=== PATIENT | female | born 1980 | race Caucasian/White ===

== ENCOUNTER 2022-05-03 08:08 | Outpatient (CLI) | payer BC, SELFPAY ==
[2022-05-03 08:24] LABS: Ur HCG Qualitative* Negative (Negative)
[2022-05-03 15:00] LABS: Chloride* 102 mmol/L (96-114)
[2022-05-03 15:01] LABS: Potassium* 4.5 mmol/L (3.6-5.1); Sodium* 134 mmol/L (135-149)
[2022-05-03 15:03] LABS: Carbon Dioxide* 22 mmol/L (20-32); Creatinine* 0.6 mg/dL (0.5-1.5); Estimated Glomerular Filt Rate 116 ml/min
[2022-05-03 15:04] LABS: Blood Urea Nitrogen* 12 mg/dL (5-24); Calcium* 9.5 mg/dL (8.4-10.6); Glucose* 100 mg/dL (60-115)
[2022-05-04 10:15] LABS: Basophils Absolute Auto 0.06 K/uL (0.00-0.30); Basophils Percent Auto 0.6 % (0.0-3.0); Eosinophils Absolute Auto 0.17 K/uL (0.00-0.50); Eosinophils Percent Auto 1.7 % (0.0-7.0); Hematocrit 41.3 % (33.0-51.0); Hemoglobin* 13.9 gm/dL (12.0-16.0); Immature Granulocytes Abs Auto 0.06 K/uL (0.00-0.30); Lymphocytes Percent Auto 17.2 % (20-44); Mean Corpuscular HGB Conc 34 gm/dL (32-36); Mean Corpuscular Hemoglobin 30 pg (26-34); Mean Corpuscular Volume 89 fL (80-100); Monocytes Percent Auto 6.6 % (0.0-11.0); Neutrophils Percent Auto 73.3 % (42.0-72.0); Platelet Count* 222 K/uL (140-440); RDW Coefficient of Variation % 11.6 % (11.5-15.5); Red Blood Count 4.62 m/uL (4.00-5.20); White Blood Count* 9.82 K/uL (4.50-11.00)
[2022-05-04 10:17] LABS: Slide Review Reflex No
== END 2022-05-03 08:09 | disposition home or self-care (01) ==
PROVIDERS: PCP Nurse Practitioner Family; Visit Provider Nurse Practitioner Family
DX: R10.31 Right lower quadrant pain (principal); N39.0 Urinary tract infection, site not specified
CPT/HCPCS: 36415; 74176; 80048; 81025; 85025; 87086; 87186; 99283; J1885; J2405; J7030

== ENCOUNTER 2022-05-03 12:52 | Emergency (ER) | payer BC, SELFPAY ==
[2022-05-03 13:04] VITALS: BP 120/83; PULSE 79; RESP 18; TEMP 36.6; O2SAT 97; BMI 22.3
--- NOTE | 2022-05-03 13:15 | ED_ITS ---
HPI - General Adult General Time Seen by Provider: 13:15 Date Seen: 05/03/22 Chief complaint: Abdominal Pain Stated complaint: Abdominal pain, needs CT Time Seen by Provider: 05/03/22 13:13 Source: patient, RN notes reviewed and old records reviewed (Note from clinic today review) Mode of arrival: ambulatory Limitations: no limitations History of Present Illness HPI narrative: Patient is a 41-year-old female sent to us from [facility] where she was evaluated by Tyrel Pruitt for concern of UTI. Patient has had urinary symptoms with frequency brownish discolored urine since yesterday. She has had significant right lower quadrant abdominal pain with this. She has had a prior and tubal ligation, LMP was about 9 days ago. No vaginal symptoms. , in a stable monogamous relationship. No other surgical procedures. I have reviewed Tyrel is note from clinic. She did want patient to have a CT to rule out such pathology is an infected kidney stone. They could not get a prior authorization done tonight she was referred to the ER. Bactrim has been ordered for her for UTI already. No fevers or chills. Has had constant nausea with this but no vomiting. States she has not eaten today as she went to the clinic at 9:00 a.m. and it is now after 1:00 p.m.. Related Data Home Medications Medication Instructions Recorded Confirmed levothyroxine 137 mcg capsule 137 mcg PO QDAY 05/03/22 05/03/22 Previous Rx's Medication Instructions Recorded phenazopyridine 200 mg tablet 200 mg PO TID PRN pain 6 doses #6 05/03/22 (Pyridium) tabs sulfamethoxazole 800 1 tab PO BID 7 days #14 tabs 05/03/22 mg-trimethoprim 160 mg tablet (Bactrim DS) Allergies Allergy/AdvReac Type Severity Reaction Status Date / Time hepatitis B virus vaccine Allergy Verified 05/03/22 07:51 Review of Systems Status of ROS: Reports: 10 or more systems reviewed and unremarkable except as noted in History and below PFSH PFSH Social History Smoking Status: Never smoker Exam Const: Vital Signs, click to edit/add: Vital Signs - 24 hr 05/03/22 13:04 Temperature 97.9 F Pulse Rate [Right Pulse Oximeter] 79 Respiratory Rate 18 Blood Pressure [Ri ght Upper Arm] 120/83 Pulse Oximetry 97 Oxygen Delivery Me thod Room Air Documenting provider has reviewed patient's vital signs: yes Common normals: no apparent distress, average body habitus, oriented x3, no limitations, healthy appearing, alert and well nourished General appearance: cooperative, comfortable and well kempt HENMT: Common normals: normocephalic, head/scalp atraumatic and hearing grossly normal bilaterally Head and scalp: normocephalic and atraumatic Eye: Common normals: PERRL, EOMs intact bilaterally, conjunctivae normal and no scleral icterus Conjunctiva: conjunctiva(e) normal Pupil: PERRL Neck & C-Spine: Common normals: full ROM, no lymphadenopathy, supple, no meningeal signs, no JVD and thyroid normal Thyroid: thyroid normal Resp: Common normals: normal respiratory effort, no retractions, no use of accessory muscles and clear to auscultation bilaterally Auscultation: clear to auscultation bilaterally Cardio: Common normals: no JVD, regular rate, regular rhythm, S1 normal heart sound, S2 normal heart sound, no gallops, no clicks, no murmurs and no rub Rate: regular rate Rhythm: regular rhythm Heart sounds: S1 normal and S2 normal GI: Common normals: Normal to inspection, nondistended, normoactive bowel sounds present, soft to palpation, no hepatosplenomegaly and no masses Pa lpation: soft, tender (Specially right lower quadrant but does generalize some to left lower quad) and no hepatosplenomegaly Neuro: Common normals: oriented x3 Sensorium/orientation: alert Meningeal signs: no meningeal signs Speech: speech normal Gait (neuro): normal gait Psych: Appearance: well kempt Skin: Common normals: no rashes or lesions noted General skin exam: no rashes or lesions noted Course Course Hospital Course: Will proceed with IV placement, give her normal saline bolus as she has not had any fluids today, Zofran 4 mg IV for control of her nausea and 15 mg IV Toradol for pain management. I will get workup of labs. I am going to proceed with ordering a CT abdomen and pelvis with and without IV contrast. There are some potential diagnosis that we certainly do not want to miss. We do not want to mi ss an infected kidney stone. We certainly conceivably could have an appendix with an atypical like causing urinary symptoms as I have seen in the past. For stone pathology I absolutely do not want to miss this and will do a noncontrast. 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 The radiologist had recommended just doing a noncontrast CT. We certainly can start with that and if need be consider back further with contrast. I will amend that order. I have also been notified that her CBC and basic metabolic panel are here in our lab from [place]. I will cancel my labs and we can just look up her results when back. Reevaluation(s) Reevaluation #1: Reviewed with patient that her CT of her abdomen noncontrast is not showing any acute pathology. Her CBC and basic metabolic panel are being run in the lab. We will complete her fluids. I have advised her that she does need to take the antibiotic that was sent in for her, Bactrim. I have also discussed Pyridium with her as an option for symptom management. We will send a course of this in for her as well. Time: 14:41 Vital Signs Vital signs: Initial Vital Signs Temperature 97.9 F 05/03/22 13:04 Temperature Source Temporal Artery Scan 05/03/22 13:04 Pulse Rate 79 05/03/22 13:04 Respiratory Rate 18 05/03/22 13:04 Blood Pressure 120/83 05/03/22 13:04 Blood Pressure Mean 95 05/03/22 13:04 Blood Pressure Position Sitting 05/03/22 13:04 Pulse Oximetry 97 05/03/22 13:04 Oxygen Delivery Method 05/03/22 13:04 Vital Signs Temperature 97.9 F 05/03/22 13:04 Pulse Rate 79 05/03/22 13:04 Respiratory Rate 18 05/03/22 13:04 Blood Pressure 120/83 05/03/22 13:04 Pulse Oximetry 97 05/03/22 13:04 Oxygen Delivery Method 05/03/22 13:04 Temperature 97.9 F 05/03/22 13:04 Pulse Rate 79 05/03/22 13:04 Respiratory Rate 18 05/03/22 13:04 Blood Pressure 120/83 05/03/22 13:04 Pulse Oximetry 97 05/03/22 13:04 Oxygen Delivery Method 05/03/22 13:04 Medical Decision Making Lab Data Lab results reviewed: Yes I reviewed the patient's lab results Lab results narrative: Her basic metabolic panel from earlier today is reviewed and without any significant concerns. CBC is still pending. Will leave that for her primary care provider to follow up, I am not sure why this is not back as of yet. Time of review was 8:[address] scan - abdomen: Attestation: I have reviewed the pertinent imaging results. Radiologist's impression: Patient: LULU MELO Facility:?[facility] Patient ID:?[id number] Site Patient ID:?[id number]. Site :?[id number] Study:?CT Abdomen/Pelvis W/O-05/03/2022 2:01:40 PM Ordering Physician:Sarah Gaytan Final Report: INDICATION: Pain right lower quadrant. Urinary tract infection. COMPARISON: None TECHNIQUE: CT examination of the abdomen and pelvis was performed without intravenous contrast. Thin section axial images were obtained from the lung bases through the pubic symphysis. Oral contrast was not administered. Please note that all CT scans at this facility use dose modulation, iterative reconstruction, and/or weight-based dosing when appropriate to reduce radiation dose to as low as reasonably achievable. FINDINGS: LUNG BASES: The lung bases as visualized appear normal.The heart size is normal at the lung bases. LIVER/BILIARY SYSTEM:The liver is normal in size and configuration given the lack of intravenous contrast. There is no visible focal mass and there is no intra- or extra hepatic biliary ductal dilatation.The gall bladder appears normal. ADRENALS: Normal non-contrast appearance KIDNEYS, URETERS and BLADDER:The kidneys appear normal given lack of intravenous contrast. No visible mass, calculus or hydronephrosis. The ureters and bladder as visualized appear normal. SPLEEN:Normal non-contrast appearance. PANCREAS: Normal non-contrast appearance. RETROPERITONEUM and MESENTERY: There is no mass, adenopathy or aortic aneurysm. GASTROINTESTINAL SYSTEM: There is no evidence of diverticulitis, colitis, mechanical obstruction, or appendicitis. The small bowel as visualized appears normal. PELVIS: No mass, adenopathy or free fluid. OSSEOUS STRUCTURES and ABDOMINAL WALL: There is an age-appropriate appearance of the osseous structures.No significant abdominal wall defect. OTHER: No free fluid or free air. IMPRESSION: Normal contrast-enhanced CT of the abdomen and pelvis Critical Care Time Critical Care Time Critical Care Time: No Discharge Plan Discharge Clinical Impression: Right lower quadrant abdominal pain, Urinary tract infection Patient Disposition: Home, Self-Care Condition: Stable Instructions: Urinary Tract Infection in Women (ED) Additional Instructions: Take antibiotic as prescribed, push fluids. If you are not improving over the next 24-48 hours, develops fever or worsening abdominal pain, have vomiting with any of these symptoms, do need to seek re-evaluation. Activity Level: Activity as Tolerated Prescriptions: New phenazopyridine [Pyridium] 200 mg tablet 200 mg PO TID PRN (Reason: pain) Qty: 6 0RF No Action levothyroxine 137 mcg capsule 137 mcg PO QDAY sulfamethoxazole-trimethoprim [Bactrim DS] 800-160 mg tablet 1 tab PO BID 7 Days Qty: 14 0RF Follow Up/Referrals: Alda Pruitt, KITCHEN WORK SUPERVISOR, RESTORATIVE COORDINATOR [Primary Care Provider] - Stand Alone Forms: [employer] Info Instructions
--- NOTE | 2022-05-03 13:23 | CRLHL7_ITS ---
For Patients: As a result of the Century Cures Act, medical imaging exams and procedure reports are released immediately into your electronic medical record. You may view this report before your referring provider. If you have questions, please contact your health care provider. INDICATION: Pain right lower quadrant. Urinary tract infection. COMPARISON: None TECHNIQUE: CT examination of the abdomen and pelvis was performed without intravenous contrast. Thin section axial images were obtained from the lung bases through the pubic symphysis. Oral contrast was not administered. Please note that all CT scans at this facility use dose modulation, iterative reconstruction, and/or weight-based dosing when appropriate to reduce radiation dose to as low as reasonably achievable. FINDINGS: LUNG BASES: The lung bases as visualized appear normal.The heart size is normal at the lung bases. LIVER/BILIARY SYSTEM:The liver is normal in size and configuration given the lack of intravenous contrast. There is no visible focal mass and there is no intra- or extra hepatic biliary ductal dilatation.The gall bladder appears normal. ADRENALS: Normal non-contrast appearance KIDNEYS, URETERS and BLADDER:The kidneys appear normal given lack of intravenous contrast. No visible mass, calculus or hydronephrosis. The ureters and bladder as visualized appear normal. SPLEEN:Normal non-contrast appearance. PANCREAS: Normal non-contrast appearance. RETROPERITONEUM and MESENTERY: There is no mass, adenopathy or aortic aneurysm. GASTROINTESTINAL SYSTEM: There is no evidence of diverticulitis, colitis, mechanical obstruction, or appendicitis. The small bowel as visualized appears normal. PELVIS: No mass, adenopathy or free fluid. OSSEOUS STRUCTURES and ABDOMINAL WALL: There is an age-appropriate appearance of the osseous structures.No significant abdominal wall defect. OTHER: No free fluid or free air. IMPRESSION: Normal contrast-enhanced CT of the abdomen and pelvis Please note that all CT scans at this facility use dose modulation, iterative reconstruction, and/or weight-based dosing when appropriate to reduce radiation dose to as low as reasonably achievable. Dictated by Nahid Galan MD @ 05/03/2022 2:09:48 PM (Electronically Signed)
[2022-05-03] MEDS: ONDANSETRON 2 MG/ML inj 4 MG IVP (13:45)
[2022-05-03] MEDS: KETOROLAC 15 MG/ML inj IVP (13:45)
[2022-05-03] MEDS: 0.9 % SODIUM CHLORIDE 1000 ml 1,000 ML 500 ML IV (14:00)
== END 2022-05-03 15:30 | disposition home or self-care (01) ==
PROVIDERS: Emergency Provider Family Medicine; PCP Nurse Practitioner Family
DX: Z53.21 Procedure and treatment not carried out due to patient leaving prior to being seen by health care provider (principal)
CPT/HCPCS: 99281; 74176; 80048; 85025; 86140; 99283; J1885; J2405; J7030

== ENCOUNTER 2022-10-04 14:35 | Outpatient (CLI) | payer SELFPAY ==
[2022-10-04 22:08] LABS: TSH With Reflex to FT4* 0.038 uIU/mL (0.270-4.200)
[2022-10-04 22:59] LABS: Free T4 Free Thyroxine* 1.79 ng/dL (0.70-1.85)
== END 2022-10-04 14:36 | disposition home or self-care (01) ==
LOC: KYNREF 14:35
PROVIDERS: PCP Nurse Practitioner Family; Visit Provider Nurse Practitioner Family
DX: E03.9 Hypothyroidism, unspecified (principal)
CPT/HCPCS: 84439; 84443

== ENCOUNTER 2023-01-03 14:39 | Outpatient (CLI) | payer SELFPAY ==
[2023-01-04 18:04] LABS: TSH With Reflex to FT4* 0.369 uIU/mL (0.270-4.200)
== END 2023-01-03 14:40 | disposition home or self-care (01) ==
PROVIDERS: PCP Nurse Practitioner Family; Visit Provider Nurse Practitioner Family
DX: E03.9 Hypothyroidism, unspecified (principal)
CPT/HCPCS: 36415; 84443

== ENCOUNTER 2024-04-09 13:26 | Outpatient (CLI) | payer OTHER, SELFPAY ==
--- OUTSIDE RECORDS SUMMARY | 2024-04-09 13:29 | XMS_ITS | Clinical Summary ---
Author Organization [facility] Address [place], [place] [address] Care Team Providers Care Dean Of Chapel Name Role Phone Pcp, No Primary Care Provider Unavailabl e Pcp, No Unavailable Unavailable Allergies No known active allergies Medications Medication Sig Dispensed Refills Start Date End Date Status LEVOTHYROXINE SODIUM (SYNTHROID ORAL) Take by mouth. 75 mcg mon-fri 50 mcg weekends Active Social History Tobacco Use Types Packs/Day Years Used Date Smoking Tobacco: Never Alcohol Use Standard Drinks/Week Comments Yes 0 (1 standard drink = 0.6 oz pur e alcohol) Sex and Gender Information Value Date Recorded Sex Assigned at Not on file Gender Identity Not on file Sexual Orientation Not on file Obstetrics History Last Filed Vital Signs Vital Sign Reading Time Taken Comments Blood Pressure 104/64 07/17/2014 3:05 PM LAPPING MACHINE SET UP OPERATOR Pulse 65 07/17/2014 3:05 PM LAPPING MACHINE SET UP OPERATOR Temperature 36.4 ??C (97.6 ??F) 07/17/2014 12:[address] Respiratory Rate 18 07/17/2014 12:57 PM LAPPING MACHINE SET UP OPERATOR Oxygen Saturation 100% 07/17/2014 3:05 PM LAPPING MACHINE SET UP OPERATOR Inhaled Oxygen Concentration - - Weight 63.5 kg (140 lb) 07/17/2014 12:57 PM LAPPING MACHINE SET UP OPERATOR Height 177.8 cm (5' 10) 07/17/2014 12:57 PM LAPPING MACHINE SET UP OPERATOR Body Mass Index 20.09 07/17/2014 12:57 PM LAPPING MACHINE SET UP OPERATOR Plan of Treatment Health Maintenance Due Date Last Done Comments Tdap 1992 Depression screening for age 12+ 1993 HIV for age 15-65 1996 BMI (ht and wt on same day) for age 18+ 1999 Hepatitis C screening for ag e 18-79 1999 Tetanus booster 2001 Pap test for age 21-65 2002 COVID-19 vaccine series (2022- season) 2023 Influenza for age 9-49 05/12/2024 Pneumococcal series for age 6-64 Aged Out No longer eligible based on patient's age to complete this topic Care Teams Dean Of Chapel Relationship Specialty Start Date End Date Pcp, No . PCP - General 07/17/14 Pcp, No . 07/17/14
--- OUTSIDE RECORDS SUMMARY | 2024-04-09 13:29 | XMS_ITS | Clinical Summary ---
Author Organization [facility] Address [address] [place] [address] Care Team Providers Care Timber Harvester Operator Name Role Phone None, Pcp Primary Care Provider Unavailabl e Allergies Active Allergy Reactions Criticality Noted Date Comments Hepatitis B Virus Vaccines Other (see comments) High 06/27/2022 Only had 1 shot. Left arm that had shot turned neon green. Stopped the series of shots. Recommended not getting the covid vaccines. Medications Medication Sig Dispensed Refills Start Date End Date Status levothyroxine (SYNTHROID) 137 MCG tablet Take 137 mcg by mouth 1 (one) time each day 06/22/2022 Active Immunizations Name Administration Dates Next Due Hepatitis B 07/29/2005 Influenza, Unspecified 12/01/2015(Deferred: [place] [facility]),12/01/2015 TD Preservative Free 03/27/2017 Tdap 02/03/2018,12/05/2006 Social History Tobacco Use Types Packs/Day Years Used Date Smoking Tobacco: Never Smokeless Tobacco: Never Alcohol Use Standard Drinks/Week Comments Not Currently 0 (1 standard drink = 0.6 oz pur e alcohol) PHQ-2 Answer Date Recorded PHQ-9 Total Score 0 06/27/2022 Sex and Gender Information Value Date Recorded Sex Assigned at Not on file Gender Identity Not on file Sexual Orientation Not on file Last Filed Vital Signs Vital Sign Reading Time Taken Comments Blood Pressure 116/74 06/27/2022 12:39 PM CDT Pulse 70 06/27/2022 11:42 AM CDT Temperature 36.6 ??C (97.9 ??F) 06/27/2022 9:23 AM CD T Respiratory Rate 16 06/27/2022 12:3 9 PM CDT Oxygen Saturation 98% 06/27/2022 12: 39 PM CDT Inhaled Oxygen Concentration - - Weight 74.4 kg (163 lb 15.3 oz) 06/27/2022 9:23 AM CDT Height 178 cm (5' 10.08) 06/27/2022 9:23 AM CDT Body Mass Index 23.47 06/27/2022 9:23 AM CDT Plan of Treatment Health Maintenance Due Date Last Done Comments Mammogram 1981 Pap Smear 1981 COVID-19 Vaccine ( - 2022-2 4 season) 2023 Influenza Vaccine (#1) 2024 12/01/2015 DTaP,Tdap,and Td Vaccines (4 - Td or Tdap) 02/04/2028 02/03/2018, 03/27/2017, 12/05/2006 HPV Vaccines Aged Out No longer eligi ble based on patient's age to complete this topic Pneumococcal Vaccine: Pediatrics (0 to 5 Years) and At-Risk Patients (6 to 64 Years) Aged Out No longer eligible b ased on patient's age to complete this topic Care Teams Timber Harvester Operator Relationship Specialty Start Date End Date None, Pcp [address] [place] [phone] PCP - General Cash Applications Analyst 06/27/22
== END 2024-04-09 13:27 | disposition home or self-care (01) ==
LOC: KYNREF 13:27
PROVIDERS: PCP Nurse Practitioner Family; Visit Provider Nurse Practitioner Family
DX: E03.9 Hypothyroidism, unspecified (principal)
CPT/HCPCS: 84443